=== PATIENT | female | born 1965 | race African-American/Black ===

== ENCOUNTER 2021-04-21 21:24 | Emergency (ER) | payer OTHER ==
[~2021-04-21] VITALS: Ht 170.2 cm; Wt 54.0 kg
[2021-04-21] MEDS ORDERED: KETOROLAC 30MG/ML VIAL IV STA (22:36)
[2021-04-21] MEDS ORDERED: VANCOMYCIN 1G PREMIX 200 ML IV ONE (22:45)
[2021-04-21] MEDS ORDERED: PIPERACILLIN/TAZ 3.375G PREMIX 50 ML IV ONE (22:45)
[2021-04-21 23:14] LABS: BASOPHILS % 0.5 % (0.0-2.0); EOSINOPHILS % 1.6 % (0.0-5.0); HEMATOCRIT. 39.5 % (36.0-48.0); HEMOGLOBIN. 12.8 g/dL (12.0-16.0); LYMPHOCYTES % 14.9 % (20.0-50.0); MEAN CORPUSCULAR HEMOGLOBIN 28.1 pg (28.0-32.0); MEAN CORPUSCULAR VOLUME 86.6 fL (81.0-99.0); MEAN PLATELET VOLUME 8.2 fl (7.4-10.4); MONOCYTES % 8.2 % (2.0-8.0); NEUTROPHILS % 74.8 % (40.0-76.0); PLATELET 230 x1000/uL (130-400); RED BLOOD CELL COUNT 4.56 mill/uL (4.2-5.4); RED CELL DISTRIBUTION WIDTH 15.4 % (11.6-14.6)
[2021-04-21 23:22] LABS: CHLORIDE 109 mEq/L (98-107)
[2021-04-22] MEDS ORDERED: HYDROCODONE/ACETAMINOPHEN 5/325MG TABLET PO PRN (05:30)
[2021-04-22 11:30] VITALS: BP 176/97
== END 2021-04-22 11:47 | disposition short-term general hospital (02) ==
LOC: ER 21:24
DX: M65.841 Other synovitis and tenosynovitis, right hand (principal); F14.90 Cocaine use, unspecified, uncomplicated; Z20.822 Contact with and (suspected) exposure to COVID-19; I50.9 Heart failure, unspecified; F20.9 Schizophrenia, unspecified; F31.9 Bipolar disorder, unspecified
CPT/HCPCS: 36415; 80053; 83605; 84145; 85025; 87040; 87426; 96365; 96375; 99291; J1885; J2543